=== PATIENT | female | born 1950 | race Caucasian/White ===

== ENCOUNTER 2017-06-29 10:57 | Day surgery (SDC) | payer OTHER ==
[~2017-06-29] VITALS: Ht 162.6 cm; Wt 76.2 kg
[~2017-06-29 10:57] MED LIST: ASPIR 8181 M1 PO; ATIVAN0.5 MG PO; COZAAR25 MG PO; CRESTOR20 MG PO; NEURONTIN100 MG PO; RANITIDINE HCL150 MG PO; VITAMIN B-12250 MCG PO; VITAMIN D32000 UNI1 PO; XELJANZ5 MG PO
== END 2017-06-29 12:46 | disposition home or self-care (01) ==
LOC: PAIN 10:57 → SDC 11:30 → PAIN 12:46
DX: M47.812 Spondylosis without myelopathy or radiculopathy, cervical region (principal); M54.81 Occipital neuralgia; M54.12 Radiculopathy, cervical region; Z79.82 Long term (current) use of aspirin
CPT/HCPCS: J1030; J2250; S0020

== ENCOUNTER 2017-07-06 12:02 | Day surgery (SDC) | payer OTHER ==
[~2017-07-06] VITALS: Ht 162.6 cm; Wt 76.2 kg
== END 2017-07-06 14:19 | disposition home or self-care (01) ==
LOC: PAIN 12:02 → SDC 12:30 → PAIN 14:19
DX: M47.812 Spondylosis without myelopathy or radiculopathy, cervical region (principal); M54.12 Radiculopathy, cervical region; M79.1 Myalgia; M54.81 Occipital neuralgia; Z79.82 Long term (current) use of aspirin
CPT/HCPCS: J1030; J2250; S0020

== ENCOUNTER 2017-10-29 09:26 | Day surgery (SDC) | payer OTHER ==
[~2017-10-29] VITALS: Ht 162.6 cm; Wt 76.2 kg
== END 2017-10-29 11:30 | disposition home or self-care (01) ==
LOC: PAIN 09:26 → SDC 10:00 → PAIN 10:00
DX: M47.22 Other spondylosis with radiculopathy, cervical region (principal); M47.816 Spondylosis without myelopathy or radiculopathy, lumbar region; Z79.82 Long term (current) use of aspirin; Z87.891 Personal history of nicotine dependence; Z86.73 Personal history of transient ischemic attack (TIA), and cerebral infarction without residual deficits; K21.9 Gastro-esophageal reflux disease without esophagitis; Z88.6 Allergy status to analgesic agent; Z91.040 Latex allergy status
CPT/HCPCS: J1100; J2250; J3010

== ENCOUNTER 2017-11-26 09:27 | Day surgery (SDC) | payer OTHER ==
[~2017-11-26] VITALS: Ht 162.6 cm; Wt 76.2 kg
[~2017-11-26 09:27] MED LIST changes: +VOLTAREN 1% GE100 GM TP
== END 2017-11-26 10:45 | disposition home or self-care (01) ==
LOC: PAIN 09:27 → SDC 10:00 → OPR 10:00 → PAIN 10:00
DX: M50.13 Cervical disc disorder with radiculopathy, cervicothoracic region (principal); M47.812 Spondylosis without myelopathy or radiculopathy, cervical region; M47.816 Spondylosis without myelopathy or radiculopathy, lumbar region; M79.1 Myalgia; Z79.82 Long term (current) use of aspirin
CPT/HCPCS: J1100; J2250; J3010

== ENCOUNTER 2017-12-03 09:11 | Day surgery (SDC) | payer OTHER ==
[2017-12-03] MEDS ORDERED: LOVASTATIN40 MG PO (09:41)
== END 2017-12-03 17:10 | disposition home or self-care (01) ==
LOC: CATH 09:11
PROC: 4A033BC Measurement of Arterial Pressure, Coronary, Percutaneous Approach (ICD-10-PCS; principal; 2017-12-03)
PROC: 4A023N7 Measurement of Cardiac Sampling and Pressure, Left Heart, Percutaneous Approach (ICD-10-PCS; principal; 2017-12-03)
PROC: B2151ZZ Fluoroscopy of Left Heart using Low Osmolar Contrast (ICD-10-PCS; principal; 2017-12-03)
PROC: B2111ZZ Fluoroscopy of Multiple Coronary Arteries using Low Osmolar Contrast (ICD-10-PCS; principal; 2017-12-03)
DX: I25.10 Atherosclerotic heart disease of native coronary artery without angina pectoris (principal); I34.0 Nonrheumatic mitral (valve) insufficiency; R07.89 Other chest pain; R06.00 Dyspnea, unspecified; E78.5 Hyperlipidemia, unspecified; I10 Essential (primary) hypertension; Z82.49 Family history of ischemic heart disease and other diseases of the circulatory system; M06.9 Rheumatoid arthritis, unspecified; K21.9 Gastro-esophageal reflux disease without esophagitis; E73.9 Lactose intolerance, unspecified; R06.83 Snoring; Z88.6 Allergy status to analgesic agent; Z91.040 Latex allergy status; Z79.82 Long term (current) use of aspirin; Z90.49 Acquired absence of other specified parts of digestive tract; Z90.710 Acquired absence of both cervix and uterus; Z80.0 Family history of malignant neoplasm of digestive organs; Z84.1 Family history of disorders of kidney and ureter; Z83.49 Family history of other endocrine, nutritional and metabolic diseases
CPT/HCPCS: 85347; 93005; C1769; C1887; J0153; J1644; J2250; J2405; J3010; J7040